=== PATIENT | male | born 1970 | race African-American/Black ===

== ENCOUNTER 2018-08-23 13:04 | Emergency (ER) | payer MEDICARE ==
[~2018-08-23] VITALS: Ht 185.4 cm; Wt 79.4 kg
[2018-08-23] MEDS ORDERED: SODIUM CHLORIDE 0.9% 1000ML 1,000 ML IV STA (13:18)
[2018-08-23] MEDS ORDERED: ONDANSETRON HCL INJ 2MG/ML 2ML 2 MG/ML VIAL IV NR (13:30)
[2018-08-23] MEDS ORDERED: MORPHINE SULFATE INJ 4 MG/ML INJ 1ML IV NR (13:30)
[2018-08-23 13:53] LABS: BASOPHILS % 0.3 % (0.0-1.0); EOSINOPHILS % 0.2 % (0.0-6.0); HEMATOCRIT 48.4 % (38.2-49.6); HEMOGLOBIN 16.3 g/dL (14.0-18.0); LYMPHOCYTES # (AUTO) 1.3 (1.0-3.2); LYMPHOCYTES % 13.2 % (18.0-39.1); MEAN CORPUSCULAR HEMOGLOBIN 29.5 pg (28-32); MEAN CORPUSCULAR HGB CONC 33.7 g/dL (31-35); MEAN CORPUSCULAR VOLUME 87.5 fL (81-99); MONOCYTES # (AUTO) 1.1 (0.2-0.8); NEUTROPHILS % 74.1 % (38.7-80.0); PLATELET COUNT 157 x10e3/uL (140-360); RED BLOOD COUNT 5.53 x10e6/uL (4.3-5.7); RED CELL DISTRIBUTION WIDTH 13.1 % (11.7-14.4)
[2018-08-23 14:04] LABS: ALBUMIN 4.1 g/dL (3.5-5.0); ALBUMIN/GLOBULIN RATIO 1.2 (0.8-2.0); CALCIUM 9.9 mg/dL (8.4-10.2); CREATININE, SERUM 1.42 mg/dL (0.72-1.25)
[2018-08-23 14:10] LABS: CLARITY,URINE HAZY (CLEAR); COLOR,URINE YELLOW (YELLOW); KETONES,URINE NEGATIVE (NEGATIVE); LEUKOCYTE ESTERASE ,URINE NEGATIVE (NEGATIVE); NITRITE,URINE NEGATIVE (NEGATIVE); PROTEIN,URINE DIPSTICK 1+ (NEGATIVE); URINE UROBILINOGEN 0.2 mg/dL (0.2 - 1)
[2018-08-23 14:11] LABS: BILIRUBIN,URINE NEGATIVE (NEGATIVE)
[2018-08-23 14:12] LABS: BACTERIA,URINE MODERATE /HPF; EPITHELIAL CELLS,URINE FEW /LPF; RBC,URINE 0-5 /HPF (0-5); WBC,URINE (MAN) 0-5 /HPF (0-5)
[2018-08-23 14:13] LABS: AMORPHOUS SEDIMENT,URINE FEW (FEW); MUCUS,URINE MODERATE (RARE)
[2018-08-23] MEDS ORDERED: IOPAMIDOL 370 MG/ML 200 ML INFUS..BTL INJ ONE (15:30)
[2018-08-23] MEDS ORDERED: SODIUM CHLORIDE 0.9% 50ML 50 ML ONE (15:30)
--- NOTE | 2018-08-23 17:05 | Diagnostic Imaging Report ---
EXAM: CT Abdomen and Pelvis WITH contrast INDICATION: ^abd pain x 2 days ^[id number] ^[id number] COMPARISON: None. TECHNIQUE: Abdomen and pelvis were scanned utilizing a multidetector helical scanner from the lung base to the pubic symphysis after administration of IV contrast. Coronal and sagittal reformations were obtained. Routine protocol was performed. Scan was performed when during portal venous phase. IV CONTRAST: 100 mL of Isovue-370 ORAL CONTRAST: Water RADIATION DOSE: Total DLP: 304.9 mGy*cm Estimated effective dose: (DLP x 0.015 x size factor) mSv COMPLICATIONS: None FINDINGS: LINES and TUBES: None. LOWER THORAX: Unremarkable HEPATOBILIARY: Multiple hepatic cysts measuring up to 1.5 cm. No biliary ductal dilation. GALLBLADDER: No radio-opaque stones or sludge. No wall thickening. SPLEEN: No splenomegaly. PANCREAS: No focal masses or ductal dilatation. ADRENALS: No adrenal nodules KIDNEYS/URETERS: Kidneys enhance symmetrically. No hydronephrosis. No cystic or solid mass lesions. No stones. GI TRACT: Small hiatal hernia with associated circumferential wall thickening of the distal esophagus and severe distention of the stomach. Mild dilatation of multiple loops of small bowel throughout the abdomen and pelvis without transition point and measuring up to 3.8 cm. The colon is decompressed. The appendix is not visualized. But no inflammatory changes in the right lower quadrant. PELVIC ORGANS/BLADDER: Unremarkable. LYMPH NODES: No lymphadenopathy. VESSELS: Unremarkable. PERITONEUM / RETROPERITONEUM: No free air. Small amount of fluid in the pelvis. BONES: Mild degenerative changes at L5-S1. SOFT TISSUES: Unremarkable. IMPRESSION: Diffuse mild dilatation of the stomach and multiple loops of small bowel without transition point and associated to small amount of free fluid in the pelvis. Findings are nonspecific and may reflect a gastroenteritis or nonspecific inflammation. No wall thickening of the small bowel. Colon is decompressed. Small hiatal hernia with circumferential wall thickening of the distal esophagus. Correlated with clinical exam and recommend GI consultation. Signed by: Dr. Krissy Colón M.D. on 08/23/2018 5:02 PM
== END 2018-08-23 18:14 | disposition home or self-care (01) ==
LOC: ER 13:08
DX: R10.31 Right lower quadrant pain (principal); R10.32 Left lower quadrant pain; R11.2 Nausea with vomiting, unspecified; K59.00 Constipation, unspecified
CPT/HCPCS: 36415; 74177; 80053; 81001; 82150; 83690; 85025; 99284; J2270; J2405; J7030; Q9967

== ENCOUNTER 2021-08-04 15:51 | Inpatient (IN) | payer MEDICARE ==
[~2021-08-04] VITALS: Ht 185.4 cm; Wt 79.4 kg
[2021-08-04] MEDS ORDERED: SODIUM CHLORIDE 0.9% 1000ML 1,000 ML IV ONE (16:15)
[2021-08-04 16:30] LABS: BASOPHILS % 0.2 % (0.0-1.0); HEMOGLOBIN 15.7 g/dL (14.0-18.0); LYMPHOCYTES # (AUTO) 1.3 (1.0-3.2); LYMPHOCYTES % 11.2 % (18.0-39.1); MEAN CORPUSCULAR HEMOGLOBIN 29.6 pg (28-32); MEAN CORPUSCULAR HGB CONC 34.1 g/dL (31-35); MEAN CORPUSCULAR VOLUME 86.8 fL (81-99); MONOCYTES % 8.5 % (4.4-11.3); NEUTROPHILS # (AUTO) 9.2 (2.1-6.9); NEUTROPHILS % 79.8 % (38.7-80.0); PLATELET COUNT 179 x10e3/uL (140-360); RED CELL DISTRIBUTION WIDTH 13.1 % (11.7-14.4)
[2021-08-04] MEDS: Morphine 4mg Syringe 4 MG/ML INJ IV PRN ×3 (16:41→20:49)
[2021-08-04] MEDS: ONDANSETRON HCL INJ 2MG/ML 2ML 2 MG/ML VIAL IV PRN ×2 (16:41→20:49)
[2021-08-04 16:48] LABS: ALBUMIN 4.2 g/dL (3.5-5.0); ALBUMIN/GLOBULIN RATIO 1.2 (0.8-2.0); ANION GAP 14.9 mmol/L (8-16); CALCIUM 9.7 mg/dL (8.4-10.2); CREATININE, SERUM 1.21 mg/dL (0.72-1.25); POTASSIUM 3.9 mmol/L (3.5-5.1)
[2021-08-04] MEDS ORDERED: IOPAMIDOL 370 MG/ML 100 ML INFUS..BTL INJ ONE (17:16)
[2021-08-04] MEDS ORDERED: Morphine 4mg Syringe 4 MG/ML INJ IV PRN (18:30)
[2021-08-04] MEDS ORDERED: ONDANSETRON HCL INJ 2MG/ML 2ML 2 MG/ML VIAL IV PRN (18:30)
[2021-08-04 20:00] VITALS: BP_SYST 131; BP_SYST 132; BP_DIAS 81; BP_DIAS 89
[2021-08-04 21:00] VITALS: BP 132/81
[2021-08-04] MEDS ORDERED: HYDRALAZINE HCL 20 MG/ML VIAL IV PRN (22:00)
[2021-08-04] MEDS ORDERED: ACETAMINOPHEN 325 MG SUPP PR PRN (22:00)
[2021-08-04] MEDS ORDERED: LEVETIRACETAM500 MG (22:08)
[2021-08-04] MEDS ORDERED: OMEPRAZOLE40 MG (22:08)
[2021-08-04] MEDS ORDERED: ONDANSETRON ODT8 MG (22:08)
[2021-08-04] MEDS: SODIUM CHLORIDE 0.9% 1000ML 1,000 ML IV SCH (22:33)
[2021-08-04] MEDS: METRONIDAZOLE 500MG/NS 100ML 100 ML IV SCH (22:33)
[2021-08-05] VITALS (9 sets, daily range): BP systolic 120–149; BP diastolic 62–82
[2021-08-05] MEDS: Morphine 4mg Syringe 4 MG/ML INJ IV PRN ×4 (00:13→20:51)
[2021-08-05] MEDS: ONDANSETRON HCL INJ 2MG/ML 2ML 2 MG/ML VIAL IV PRN ×4 (00:13→20:50)
[2021-08-05] MEDS ORDERED: KETOROLAC TROMETHAMINE 30 MG/ML VIAL IV STA (04:23)
[2021-08-05 05:08] LABS: BASOPHILS % 0.2 % (0.0-1.0); HEMATOCRIT 44.7 % (38.2-49.6); LYMPHOCYTES # (AUTO) 0.7 (1.0-3.2); MEAN CORPUSCULAR HEMOGLOBIN 29.5 pg (28-32); MEAN CORPUSCULAR HGB CONC 33.6 g/dL (31-35); MEAN CORPUSCULAR VOLUME 87.8 fL (81-99); MONOCYTES # (AUTO) 1.7 (0.2-0.8); MONOCYTES % 15.1 % (4.4-11.3); NEUTROPHILS # (AUTO) 8.7 (2.1-6.9); NEUTROPHILS % 78.2 % (38.7-80.0); PLATELET COUNT 150 x10e3/uL (140-360); RED BLOOD COUNT 5.09 x10e6/uL (4.3-5.7)
[2021-08-05] MEDS: SODIUM CHLORIDE 0.9% 1000ML 1,000 ML IV SCH ×3 (05:19→17:50)
[2021-08-05] MEDS: METRONIDAZOLE 500MG/NS 100ML 100 ML IV SCH ×3 (05:19→20:50)
[2021-08-05 05:31] LABS: ANION GAP 12.2 mmol/L (8-16); CREATININE, SERUM 1.21 mg/dL (0.72-1.25); POTASSIUM 4.2 mmol/L (3.5-5.1)
[2021-08-05] MEDS: LEVETIRACETAM 500MG/5ML VIAL 500 MG in SODIUM CHLORIDE 0.9% 100 ML 100 ML IV SCH ×2 (11:46→23:30)
[2021-08-05] MEDS: BISACODYL 10 MG SUPP PR SCH (20:50)
[2021-08-05] MEDS ORDERED: SODIUM CHLORIDE 0.9% 100 ML ONE (23:36)
[2021-08-06] VITALS (8 sets, daily range): BP systolic 130–144; BP diastolic 68–87
[2021-08-06] MEDS: Morphine 4mg Syringe 4 MG/ML INJ IV PRN ×3 (00:21→20:33)
[2021-08-06] MEDS: SODIUM CHLORIDE 0.9% 1000ML 1,000 ML IV SCH ×4 (02:38→19:57)
[2021-08-06] MEDS: METRONIDAZOLE 500MG/NS 100ML 100 ML IV SCH ×3 (05:03→22:45)
[2021-08-06 05:35] LABS: BASOPHILS % 0.2 % (0.0-1.0); HEMATOCRIT 41.7 % (38.2-49.6); LYMPHOCYTES # (AUTO) 0.5 (1.0-3.2); LYMPHOCYTES % 4.1 % (18.0-39.1); MEAN CORPUSCULAR HEMOGLOBIN 29.5 pg (28-32); MEAN CORPUSCULAR HGB CONC 33.6 g/dL (31-35); MEAN CORPUSCULAR VOLUME 87.8 fL (81-99); MONOCYTES # (AUTO) 1.4 (0.2-0.8); MONOCYTES % 11.8 % (4.4-11.3); NEUTROPHILS # (AUTO) 10.1 (2.1-6.9); NEUTROPHILS % 83.2 % (38.7-80.0); PLATELET COUNT 137 x10e3/uL (140-360); RED BLOOD COUNT 4.75 x10e6/uL (4.3-5.7); RED CELL DISTRIBUTION WIDTH 13.2 % (11.7-14.4)
[2021-08-06 05:44] LABS: ANION GAP 9.9 mmol/L (8-16); CALCIUM 8.2 mg/dL (8.4-10.2); CREATININE, SERUM 1.15 mg/dL (0.72-1.25); POTASSIUM 3.9 mmol/L (3.5-5.1)
[2021-08-06] MEDS: BISACODYL 10 MG SUPP PR SCH (08:31)
[2021-08-06 09:04] LABS: BAND NEUTROPHILS % (MANUAL) 6 %; LYMPHOCYTES % (MANUAL) 4 % (19-48); MONOCYTES % (MANUAL) 11 % (3.4-9.0); NEUTROPHILS % (MANUAL) 79 % (40-74); PLATELET ESTIMATE SLIGHTLY DECREASED; PLATELET MORPHOLOGY COMMENT NORMAL; RBC MORPHOLOGY COMMENT NORMAL
[2021-08-06] MEDS: LEVETIRACETAM 500MG/5ML VIAL 500 MG in SODIUM CHLORIDE 0.9% 100 ML 100 ML IV SCH ×2 (12:16→21:46)
[2021-08-06] MEDS: ONDANSETRON HCL INJ 2MG/ML 2ML 2 MG/ML VIAL IV PRN (18:19)
[2021-08-07] VITALS: BP 118/57
[2021-08-07] MEDS: Morphine 4mg Syringe 4 MG/ML INJ IV PRN ×4 (01:08→22:45)
[2021-08-07] MEDS: SODIUM CHLORIDE 0.9% 1000ML 1,000 ML IV SCH ×3 (02:51→15:27)
[2021-08-07 04:19] VITALS: BP 120/75
[2021-08-07] MEDS: KETOROLAC TROMETHAMINE 30 MG/ML VIAL IV PRN ×2 (04:40→16:00)
[2021-08-07] MEDS: METRONIDAZOLE 500MG/NS 100ML 100 ML IV SCH ×3 (05:17→22:45)
[2021-08-07 05:21] LABS: BASOPHILS % 0.2 % (0.0-1.0); HEMATOCRIT 39.7 % (38.2-49.6); HEMOGLOBIN 13.4 g/dL (14.0-18.0); LYMPHOCYTES # (AUTO) 0.6 (1.0-3.2); LYMPHOCYTES % 5.3 % (18.0-39.1); MEAN CORPUSCULAR HEMOGLOBIN 29.6 pg (28-32); MEAN CORPUSCULAR HGB CONC 33.8 g/dL (31-35); MEAN CORPUSCULAR VOLUME 87.8 fL (81-99); MONOCYTES # (AUTO) 0.8 (0.2-0.8); MONOCYTES % 6.9 % (4.4-11.3); NEUTROPHILS # (AUTO) 9.6 (2.1-6.9); NEUTROPHILS % 87.1 % (38.7-80.0); PLATELET COUNT 134 x10e3/uL (140-360); RED BLOOD COUNT 4.52 x10e6/uL (4.3-5.7); RED CELL DISTRIBUTION WIDTH 13.6 % (11.7-14.4)
[2021-08-07 05:43] LABS: ANION GAP 10.9 mmol/L (8-16); CALCIUM 8.3 mg/dL (8.4-10.2); CREATININE, SERUM 1.17 mg/dL (0.72-1.25); POTASSIUM 3.9 mmol/L (3.5-5.1)
[2021-08-07 07:42] LABS: BAND NEUTROPHILS % (MANUAL) 4 %; LYMPHOCYTES % (MANUAL) 6 % (19-48); MONOCYTES % (MANUAL) 3 % (3.4-9.0); NEUTROPHILS % (MANUAL) 87 % (40-74); PLATELET ESTIMATE SLIGHTLY DECREASED
[2021-08-07 07:43] LABS: PLATELET MORPHOLOGY COMMENT FEW LARGE; RBC MORPHOLOGY COMMENT NORMAL
[2021-08-07] MEDS: LEVETIRACETAM 500MG/5ML VIAL 500 MG in SODIUM CHLORIDE 0.9% 100 ML 100 ML IV SCH ×2 (10:30→22:45)
[2021-08-07] MEDS ORDERED: DIATRIZOATE MEGL/DIATRIZOA SOD 30 ML BTL PO ONE (10:32)
[2021-08-07] MEDS ORDERED: IOPAMIDOL 370 MG/ML 100 ML INFUS..BTL INJ ONE (10:32)
[2021-08-07 12:46] VITALS: BP 120/80
[2021-08-07] MEDS: CEFEPIME 2 GM in SODIUM CHLORIDE 0.9% 100 ML IV SCH ×2 (13:30→20:32)
[2021-08-07 15:57] VITALS: BP 135/76
[2021-08-07 20:00] VITALS: BP 132/75
[2021-08-07] MEDS: CENTRAL TPN FORMULA 1 BAG IV SCH (20:45)
[2021-08-07] MEDS: ONDANSETRON HCL INJ 2MG/ML 2ML 2 MG/ML VIAL IV PRN (22:45)
[2021-08-08] VITALS (7 sets, daily range): BP systolic 109–122; BP diastolic 55–71
[2021-08-08] MEDS: KETOROLAC TROMETHAMINE 30 MG/ML VIAL IV PRN ×3 (01:22→16:36)
[2021-08-08] MEDS: CEFEPIME 2 GM in SODIUM CHLORIDE 0.9% 100 ML IV SCH ×3 (04:26→21:00)
[2021-08-08 05:03] LABS: BASOPHILS % 0.2 % (0.0-1.0); EOSINOPHILS # (AUTO) 0.1 (0.0-0.4); EOSINOPHILS % 0.6 % (0.0-6.0); HEMATOCRIT 37.5 % (38.2-49.6); HEMOGLOBIN 12.5 g/dL (14.0-18.0); LYMPHOCYTES # (AUTO) 0.5 (1.0-3.2); LYMPHOCYTES % 5.7 % (18.0-39.1); MEAN CORPUSCULAR HEMOGLOBIN 29.6 pg (28-32); MEAN CORPUSCULAR HGB CONC 33.3 g/dL (31-35); MEAN CORPUSCULAR VOLUME 88.9 fL (81-99); MONOCYTES # (AUTO) 0.6 (0.2-0.8); MONOCYTES % 6.9 % (4.4-11.3); NEUTROPHILS # (AUTO) 7.6 (2.1-6.9); NEUTROPHILS % 86.3 % (38.7-80.0); PLATELET COUNT 133 x10e3/uL (140-360); RED BLOOD COUNT 4.22 x10e6/uL (4.3-5.7); RED CELL DISTRIBUTION WIDTH 13.7 % (11.7-14.4)
[2021-08-08] MEDS: METRONIDAZOLE 500MG/NS 100ML 100 ML IV SCH ×3 (05:10→21:14)
[2021-08-08] MEDS: SODIUM CHLORIDE 0.9% 1000ML 1,000 ML IV SCH (05:10)
[2021-08-08 05:17] LABS: ANION GAP 7.8 mmol/L (8-16); CALCIUM 7.9 mg/dL (8.4-10.2); CREATININE, SERUM 1.03 mg/dL (0.72-1.25); POTASSIUM 3.8 mmol/L (3.5-5.1)
[2021-08-08 08:59] LABS: EOSINOPHILS % (MANUAL) 1 % (0-7); LYMPHOCYTES % (MANUAL) 6 % (19-48); MONOCYTES % (MANUAL) 5 % (3.4-9.0); NEUTROPHILS % (MANUAL) 88 % (40-74)
[2021-08-08 09:00] LABS: PLATELET ESTIMATE SLIGHTLY DECREASED; PLATELET MORPHOLOGY COMMENT NORMAL; RBC MORPHOLOGY COMMENT NORMAL
[2021-08-08] MEDS: LEVETIRACETAM 500MG/5ML VIAL 500 MG in SODIUM CHLORIDE 0.9% 100 ML 100 ML IV SCH ×2 (10:48→22:30)
[2021-08-08] MEDS: Morphine 4mg Syringe 4 MG/ML INJ IV PRN ×3 (12:58→22:36)
[2021-08-08] MEDS: CENTRAL TPN FORMULA 1 BAG IV SCH (20:00)
[2021-08-08] MEDS: BISACODYL 10 MG SUPP PR SCH (21:00)
[2021-08-08] MEDS: ONDANSETRON HCL INJ 2MG/ML 2ML 2 MG/ML VIAL IV PRN (22:36)
[2021-08-09] VITALS (7 sets, daily range): BP systolic 115–160; BP diastolic 65–74
[2021-08-09] MEDS: KETOROLAC TROMETHAMINE 30 MG/ML VIAL IV PRN ×3 (00:44→23:54)
[2021-08-09] MEDS: CEFEPIME 2 GM in SODIUM CHLORIDE 0.9% 100 ML IV SCH ×3 (04:59→20:31)
[2021-08-09] MEDS: METRONIDAZOLE 500MG/NS 100ML 100 ML IV SCH ×3 (06:00→23:24)
[2021-08-09 07:25] LABS: ANION GAP 7.8 mmol/L (8-16); CALCIUM 7.9 mg/dL (8.4-10.2); CREATININE, SERUM 1.04 mg/dL (0.72-1.25); POTASSIUM 3.8 mmol/L (3.5-5.1)
[2021-08-09 07:39] LABS: MAGNESIUM 2.6 MG/DL (1.3-2.1); PHOSPHORUS 2.7 MG/DL (2.3-4.7)
[2021-08-09] MEDS: BISACODYL 10 MG SUPP PR SCH ×2 (09:14→21:55)
[2021-08-09] MEDS: Morphine 4mg Syringe 4 MG/ML INJ IV PRN ×3 (09:19→20:47)
[2021-08-09] MEDS: LEVETIRACETAM 500MG/5ML VIAL 500 MG in SODIUM CHLORIDE 0.9% 100 ML 100 ML IV SCH ×2 (09:38→22:20)
[2021-08-09] MEDS: CENTRAL TPN FORMULA 1 BAG IV SCH (20:31)
[2021-08-09] MEDS: ONDANSETRON HCL INJ 2MG/ML 2ML 2 MG/ML VIAL IV PRN (20:50)
[2021-08-10] VITALS (8 sets, daily range): BP systolic 113–128; BP diastolic 70–79
[2021-08-10] MEDS: Morphine 4mg Syringe 4 MG/ML INJ IV PRN ×3 (04:01→18:24)
[2021-08-10] MEDS: CEFEPIME 2 GM in SODIUM CHLORIDE 0.9% 100 ML IV SCH ×3 (04:01→20:33)
[2021-08-10] MEDS: ONDANSETRON HCL INJ 2MG/ML 2ML 2 MG/ML VIAL IV PRN ×3 (04:10→18:24)
[2021-08-10] MEDS: METRONIDAZOLE 500MG/NS 100ML 100 ML IV SCH ×3 (05:22→22:00)
[2021-08-10 06:56] LABS: ANION GAP 6.9 mmol/L (8-16); CALCIUM 8.1 mg/dL (8.4-10.2); CREATININE, SERUM 1.01 mg/dL (0.72-1.25); POTASSIUM 3.9 mmol/L (3.5-5.1)
[2021-08-10 06:58] LABS: MAGNESIUM 2.2 MG/DL (1.3-2.1); PHOSPHORUS 3.3 MG/DL (2.3-4.7)
[2021-08-10] MEDS: BISACODYL 10 MG SUPP PR SCH (09:19)
[2021-08-10] MEDS: LEVETIRACETAM 500MG/5ML VIAL 500 MG in SODIUM CHLORIDE 0.9% 100 ML 100 ML IV SCH ×2 (11:03→23:00)
[2021-08-10] MEDS: KETOROLAC TROMETHAMINE 30 MG/ML VIAL IV PRN ×2 (14:10→20:34)
[2021-08-10] MEDS: CENTRAL TPN FORMULA 1 BAG IV SCH (20:36)
[2021-08-11] VITALS (7 sets, daily range): BP systolic 129–143; BP diastolic 69–85
[2021-08-11] MEDS: ONDANSETRON HCL INJ 2MG/ML 2ML 2 MG/ML VIAL IV PRN ×3 (00:38→18:30)
[2021-08-11] MEDS: Morphine 4mg Syringe 4 MG/ML INJ IV PRN ×4 (00:38→21:18)
[2021-08-11] MEDS: CEFEPIME 2 GM in SODIUM CHLORIDE 0.9% 100 ML IV SCH ×3 (04:37→20:59)
[2021-08-11] MEDS: METRONIDAZOLE 500MG/NS 100ML 100 ML IV SCH ×3 (05:58→23:00)
[2021-08-11 06:16] LABS: BASOPHILS % 0.5 % (0.0-1.0); EOSINOPHILS # (AUTO) 0.2 (0.0-0.4); EOSINOPHILS % 1.9 % (0.0-6.0); HEMOGLOBIN 12.3 g/dL (14.0-18.0); LYMPHOCYTES % 11.5 % (18.0-39.1); MEAN CORPUSCULAR HEMOGLOBIN 29.1 pg (28-32); MEAN CORPUSCULAR HGB CONC 32.4 g/dL (31-35); MONOCYTES # (AUTO) 1.4 (0.2-0.8); MONOCYTES % 16.1 % (4.4-11.3); NEUTROPHILS # (AUTO) 5.7 (2.1-6.9); NEUTROPHILS % 68.1 % (38.7-80.0); PLATELET COUNT 144 x10e3/uL (140-360); RED BLOOD COUNT 4.22 x10e6/uL (4.3-5.7)
[2021-08-11 06:38] LABS: ALBUMIN 2.4 g/dL (3.5-5.0); ALBUMIN/GLOBULIN RATIO 0.8 (0.8-2.0); ANION GAP 7.9 mmol/L (8-16); CALCIUM 7.9 mg/dL (8.4-10.2); CHOL/HDL RATIO 2.9 (3.9-4.7); CREATININE, SERUM 0.94 mg/dL (0.72-1.25); MAGNESIUM 1.8 MG/DL (1.3-2.1); PHOSPHORUS 3.1 MG/DL (2.3-4.7); POTASSIUM 3.9 mmol/L (3.5-5.1)
[2021-08-11] MEDS ORDERED: SODIUM CHLORIDE 0.9% 250ML 250 ML ONE (08:28)
[2021-08-11] MEDS: LEVETIRACETAM 500MG/5ML VIAL 500 MG in SODIUM CHLORIDE 0.9% 100 ML 100 ML IV SCH ×2 (10:30→22:30)
[2021-08-11] MEDS: KETOROLAC TROMETHAMINE 30 MG/ML VIAL IV PRN (13:15)
[2021-08-11] MEDS ORDERED: CENTRAL TPN FORMULA 1 BAG IV SCH (20:00)
[2021-08-12] VITALS (7 sets, daily range): BP systolic 113–141; BP diastolic 62–79
[2021-08-12] MEDS: Morphine 4mg Syringe 4 MG/ML INJ IV PRN ×4 (05:03→20:18)
[2021-08-12] MEDS: CEFEPIME 2 GM in SODIUM CHLORIDE 0.9% 100 ML IV SCH ×2 (05:03→13:00)
[2021-08-12] MEDS: ONDANSETRON HCL INJ 2MG/ML 2ML 2 MG/ML VIAL IV PRN ×3 (05:03→16:09)
[2021-08-12] MEDS: METRONIDAZOLE 500MG/NS 100ML 100 ML IV SCH ×2 (06:44→13:30)
[2021-08-12] MEDS: LEVETIRACETAM 500MG/5ML VIAL 500 MG in SODIUM CHLORIDE 0.9% 100 ML 100 ML IV SCH ×2 (10:30→21:33)
[2021-08-12] MEDS: CENTRAL TPN FORMULA 1 BAG IV SCH (20:13)
[2021-08-13] VITALS (8 sets, daily range): BP systolic 114–122; BP diastolic 64–71
[2021-08-13] MEDS: Morphine 4mg Syringe 4 MG/ML INJ IV PRN ×7 (00:02→22:15)
[2021-08-13 07:48] LABS: BASOPHILS # (AUTO) 0.1 (0.0-0.1); BASOPHILS % 0.4 % (0.0-1.0); EOSINOPHILS # (AUTO) 0.1 (0.0-0.4); HEMATOCRIT 38.7 % (38.2-49.6); HEMOGLOBIN 12.8 g/dL (14.0-18.0); LYMPHOCYTES # (AUTO) 1.7 (1.0-3.2); LYMPHOCYTES % 11.7 % (18.0-39.1); MEAN CORPUSCULAR HEMOGLOBIN 29.2 pg (28-32); MEAN CORPUSCULAR HGB CONC 33.1 g/dL (31-35); MEAN CORPUSCULAR VOLUME 88.2 fL (81-99); MONOCYTES # (AUTO) 1.7 (0.2-0.8); MONOCYTES % 11.7 % (4.4-11.3); NEUTROPHILS # (AUTO) 10.4 (2.1-6.9); NEUTROPHILS % 73.3 % (38.7-80.0); PLATELET COUNT 170 x10e3/uL (140-360); RED BLOOD COUNT 4.39 x10e6/uL (4.3-5.7); RED CELL DISTRIBUTION WIDTH 13.2 % (11.7-14.4)
[2021-08-13 08:08] LABS: ALBUMIN 2.6 g/dL (3.5-5.0); ALBUMIN/GLOBULIN RATIO 0.8 (0.8-2.0); ANION GAP 10.1 mmol/L (8-16); CALCIUM 7.9 mg/dL (8.4-10.2); CREATININE, SERUM 0.96 mg/dL (0.72-1.25); POTASSIUM 4.1 mmol/L (3.5-5.1)
[2021-08-13] MEDS: LEVETIRACETAM 500MG/5ML VIAL 500 MG in SODIUM CHLORIDE 0.9% 100 ML 100 ML IV SCH ×2 (09:11→22:30)
[2021-08-13] MEDS: ONDANSETRON HCL INJ 2MG/ML 2ML 2 MG/ML VIAL IV PRN (14:53)
[2021-08-13] MEDS: CENTRAL TPN FORMULA 1 BAG IV SCH (20:57)
[2021-08-14] VITALS (9 sets, daily range): BP systolic 0–124; BP diastolic 65–73
[2021-08-14] MEDS: Morphine 4mg Syringe 4 MG/ML INJ IV PRN ×4 (02:10→15:26)
[2021-08-14 06:19] LABS: BASOPHILS # (AUTO) 0.1 (0.0-0.1); BASOPHILS % 0.5 % (0.0-1.0); EOSINOPHILS # (AUTO) 0.1 (0.0-0.4); EOSINOPHILS % 0.7 % (0.0-6.0); HEMOGLOBIN 13.3 g/dL (14.0-18.0); LYMPHOCYTES # (AUTO) 2.3 (1.0-3.2); LYMPHOCYTES % 12.9 % (18.0-39.1); MEAN CORPUSCULAR HGB CONC 33.3 g/dL (31-35); MEAN CORPUSCULAR VOLUME 87.3 fL (81-99); MONOCYTES # (AUTO) 1.9 (0.2-0.8); MONOCYTES % 10.5 % (4.4-11.3); NEUTROPHILS # (AUTO) 12.9 (2.1-6.9); NEUTROPHILS % 73.1 % (38.7-80.0); PLATELET COUNT 177 x10e3/uL (140-360); RED BLOOD COUNT 4.58 x10e6/uL (4.3-5.7); RED CELL DISTRIBUTION WIDTH 13.1 % (11.7-14.4)
[2021-08-14 06:49] LABS: ALBUMIN 2.9 g/dL (3.5-5.0); ALBUMIN/GLOBULIN RATIO 0.8 (0.8-2.0); ANION GAP 11.4 mmol/L (8-16); CALCIUM 8.2 mg/dL (8.4-10.2); POTASSIUM 4.4 mmol/L (3.5-5.1)
[2021-08-14] MEDS: LEVETIRACETAM 500MG/5ML VIAL 500 MG in SODIUM CHLORIDE 0.9% 100 ML 100 ML IV SCH (10:33)
[2021-08-14] MEDS ORDERED: FENTANYL CITRATE/PF 100MCG/2 ML INJ ONE ×2 (12:19→23:05)
[2021-08-14] MEDS ORDERED: MIDAZOLAM HCL 2 MG/2 ML VIAL ONE (12:19)
[2021-08-14] MEDS ORDERED: ONDANSETRON HCL INJ 2MG/ML 2ML 2 MG/ML VIAL ONE ×2 (13:25→23:16)
[2021-08-14] MEDS ORDERED: SUCCINYLCHOLINE CHLORIDE 20 MG/ML 10ML VIAL ONE (13:25)
[2021-08-14] MEDS ORDERED: POVIDONE IODINE 0.05% 0.05 % ML PO ONE (13:25)
[2021-08-14] MEDS ORDERED: PROPOFOL IV EMULSION 10 MG/ML 20 ML VIAL ONE (13:25)
[2021-08-14] MEDS ORDERED: LIDOCAINE HCL 2% LOCAL INJ 5 ML SDV VIAL INJ ONE (13:25)
[2021-08-14] MEDS ORDERED: NEOSTIGMINE 1 MG/ML 10ML VIAL ONE (13:25)
[2021-08-14] MEDS ORDERED: ATROPINE SULFATE 1 MG/ML VIAL ONE (13:25)
[2021-08-14] MEDS ORDERED: KETOROLAC TROMETHAMINE 30 MG/ML VIAL ONE (13:25)
[2021-08-14] MEDS ORDERED: SEVOFLURANE INHAL SOLN 250 ML PEN BTL ONE (13:25)
[2021-08-14] MEDS ORDERED: ROCURONIUM BROMIDE 10 MG/ML 5ML VIAL IV ONE (13:25)
[2021-08-14] MEDS ORDERED: DEXAMETHASONE SOD PHOS INJ 4 MG/ML SDV ONE (13:25)
[2021-08-14] MEDS ORDERED: ONDANSETRON HCL INJ 2MG/ML 2ML 2 MG/ML VIAL IV PRN (22:45)
[2021-08-14] MEDS: SODIUM CHLORIDE 0.9% 250ML IRRIG IR SCH (22:45)
[2021-08-15] VITALS (27 sets, daily range): BP systolic 76–126; BP diastolic 52–112
[2021-08-15] MEDS: SODIUM CHLORIDE 0.9% 1000ML 1,000 ML IV SCH ×3 (00:06→17:12)
[2021-08-15] MEDS: LEVETIRACETAM 500MG/5ML VIAL 500 MG in SODIUM CHLORIDE 0.9% 100 ML 100 ML IV SCH ×3 (00:20→21:48)
[2021-08-15] MEDS: HYDROMORPHONE 1MG/1ML INJ IV PRN ×8 (00:30→23:20)
[2021-08-15] MEDS: SODIUM CHLORIDE 0.9% 250ML IRRIG IR SCH ×6 (04:00→22:55)
[2021-08-15] MEDS: MEROPENEM 1 GM in SODIUM CHLORIDE 0.9% 100 ML IV SCH ×3 (05:31→21:30)
[2021-08-15 06:16] LABS: BASOPHILS # (AUTO) 0.1 (0.0-0.1); BASOPHILS % 0.3 % (0.0-1.0); EOSINOPHILS % 0.1 % (0.0-6.0); HEMATOCRIT 38.6 % (38.2-49.6); LYMPHOCYTES # (AUTO) 1.2 (1.0-3.2); LYMPHOCYTES % 4.5 % (18.0-39.1); MEAN CORPUSCULAR HEMOGLOBIN 29.5 pg (28-32); MEAN CORPUSCULAR HGB CONC 33.7 g/dL (31-35); MEAN CORPUSCULAR VOLUME 87.7 fL (81-99); MONOCYTES # (AUTO) 1.9 (0.2-0.8); MONOCYTES % 7.4 % (4.4-11.3); NEUTROPHILS # (AUTO) 22.3 (2.1-6.9); NEUTROPHILS % 85.9 % (38.7-80.0); PLATELET COUNT 222 x10e3/uL (140-360); RED CELL DISTRIBUTION WIDTH 13.1 % (11.7-14.4)
[2021-08-15 06:39] LABS: ANION GAP 9.7 mmol/L (8-16); CALCIUM 7.3 mg/dL (8.4-10.2); CREATININE, SERUM 1.08 mg/dL (0.72-1.25)
[2021-08-15 06:45] LABS: POTASSIUM 5.7 mmol/L (3.5-5.1)
[2021-08-15 06:58] LABS: ALBUMIN 2.2 g/dL (3.5-5.0); ALBUMIN/GLOBULIN RATIO 0.8 (0.8-2.0)
[2021-08-15 07:01] LABS: MAGNESIUM 1.6 MG/DL (1.3-2.1); PHOSPHORUS 3.2 MG/DL (2.3-4.7)
[2021-08-15 09:45] LABS: BAND NEUTROPHILS % (MANUAL) 7 %; LYMPHOCYTES % (MANUAL) 4 % (19-48); METAMYELOCYTES % (MANUAL) 1 % (0-0); MONOCYTES % (MANUAL) 4 % (3.4-9.0); MYELOCYTES % (MANUAL) 1 % (0-0); NEUTROPHILS % (MANUAL) 83 % (40-74)
[2021-08-15 09:47] LABS: PLATELET ESTIMATE ADEQUATE; PLATELET MORPHOLOGY COMMENT NORMAL; RBC MORPHOLOGY COMMENT NORMAL
[2021-08-15] MEDS ORDERED: DEXTROSE 10% 1,000 ML IV SCH (14:15)
[2021-08-15] MEDS ORDERED: MAGNESIUM SULFATE 2GM/50ML 50 ML IV ONE (14:50)
[2021-08-15] MEDS: ACETAMINOPHEN 1000 MG/100 ML IV PRN (19:30)
[2021-08-15] MEDS: ONDANSETRON HCL INJ 2MG/ML 2ML 2 MG/ML VIAL IV PRN (19:30)
[2021-08-15] MEDS: CENTRAL TPN FORMULA 1 BAG IV SCH ×2 (21:16)
[2021-08-15] MEDS ORDERED: LEVETIRACETAM 500 MG/5 ML VIAL IV ONE (21:44)
[2021-08-15] MEDS ORDERED: SODIUM CHLORIDE 0.9% 100 ML ONE (21:47)
[2021-08-16] VITALS (22 sets, daily range): BP systolic 105–142; BP diastolic 64–85
[2021-08-16] MEDS: ONDANSETRON HCL INJ 2MG/ML 2ML 2 MG/ML VIAL IV PRN (00:46)
[2021-08-16] MEDS: ACETAMINOPHEN 1000 MG/100 ML IV PRN (02:16)
[2021-08-16] MEDS: SODIUM CHLORIDE 0.9% 250ML IRRIG IR SCH ×6 (02:49→23:24)
[2021-08-16] MEDS: SODIUM CHLORIDE 0.9% 1000ML 1,000 ML IV SCH ×2 (05:09→15:46)
[2021-08-16] MEDS: MEROPENEM 1 GM in SODIUM CHLORIDE 0.9% 100 ML IV SCH ×3 (05:25→22:45)
[2021-08-16] MEDS: HYDROMORPHONE 1MG/1ML INJ IV PRN ×6 (06:28→23:11)
[2021-08-16 10:37] LABS: BASOPHILS # (AUTO) 0.1 (0.0-0.1); BASOPHILS % 0.3 % (0.0-1.0); EOSINOPHILS # (AUTO) 0.1 (0.0-0.4); EOSINOPHILS % 0.7 % (0.0-6.0); LYMPHOCYTES # (AUTO) 1.2 (1.0-3.2); MEAN CORPUSCULAR HEMOGLOBIN 29.5 pg (28-32); MEAN CORPUSCULAR HGB CONC 34.1 g/dL (31-35); MEAN CORPUSCULAR VOLUME 86.7 fL (81-99); MONOCYTES # (AUTO) 1.9 (0.2-0.8); MONOCYTES % 10.5 % (4.4-11.3); NEUTROPHILS # (AUTO) 14.2 (2.1-6.9); NEUTROPHILS % 79.9 % (38.7-80.0); PLATELET COUNT 220 x10e3/uL (140-360); RED BLOOD COUNT 3.69 x10e6/uL (4.3-5.7); RED CELL DISTRIBUTION WIDTH 13.1 % (11.7-14.4)
[2021-08-16 10:42] LABS: HEMOGLOBIN 10.9 g/dL (14.0-18.0)
[2021-08-16 10:54] LABS: ALBUMIN/GLOBULIN RATIO 0.6 (0.8-2.0); ANION GAP 9.5 mmol/L (8-16); CALCIUM 7.4 mg/dL (8.4-10.2); CREATININE, SERUM 0.86 mg/dL (0.72-1.25); POTASSIUM 4.5 mmol/L (3.5-5.1)
[2021-08-16] MEDS: LEVETIRACETAM 500MG/5ML VIAL 500 MG in SODIUM CHLORIDE 0.9% 100 ML 100 ML IV SCH ×2 (11:21→23:24)
[2021-08-16] MEDS: CENTRAL TPN FORMULA 1 BAG IV SCH (20:40)
[2021-08-17] VITALS (7 sets, daily range): BP systolic 121–136; BP diastolic 71–76
[2021-08-17] MEDS: HYDROMORPHONE 1MG/1ML INJ IV PRN ×7 (03:15→23:24)
[2021-08-17] MEDS: SODIUM CHLORIDE 0.9% 250ML IRRIG IR SCH ×3 (03:15→10:45)
[2021-08-17] MEDS: MEROPENEM 1 GM in SODIUM CHLORIDE 0.9% 100 ML IV SCH ×3 (05:57→21:51)
[2021-08-17 09:22] LABS: BASOPHILS # (AUTO) 0.1 (0.0-0.1); BASOPHILS % 0.3 % (0.0-1.0); EOSINOPHILS # (AUTO) 0.2 (0.0-0.4); HEMATOCRIT 32.5 % (38.2-49.6); HEMOGLOBIN 11.1 g/dL (14.0-18.0); LYMPHOCYTES # (AUTO) 1.2 (1.0-3.2); LYMPHOCYTES % 8.2 % (18.0-39.1); MEAN CORPUSCULAR HEMOGLOBIN 29.3 pg (28-32); MEAN CORPUSCULAR HGB CONC 34.2 g/dL (31-35); MEAN CORPUSCULAR VOLUME 85.8 fL (81-99); MONOCYTES # (AUTO) 1.7 (0.2-0.8); MONOCYTES % 11.7 % (4.4-11.3); NEUTROPHILS # (AUTO) 11.4 (2.1-6.9); NEUTROPHILS % 77.3 % (38.7-80.0); PLATELET COUNT 234 x10e3/uL (140-360); RED BLOOD COUNT 3.79 x10e6/uL (4.3-5.7); RED CELL DISTRIBUTION WIDTH 13.2 % (11.7-14.4)
[2021-08-17 09:25] LABS: ANION GAP 10.2 mmol/L (8-16); CALCIUM 7.9 mg/dL (8.4-10.2); CREATININE, SERUM 0.79 mg/dL (0.72-1.25); POTASSIUM 4.2 mmol/L (3.5-5.1)
[2021-08-17 09:38] LABS: ALBUMIN/GLOBULIN RATIO 0.6 (0.8-2.0)
[2021-08-17] MEDS: LEVETIRACETAM 500MG/5ML VIAL 500 MG in SODIUM CHLORIDE 0.9% 100 ML 100 ML IV SCH ×2 (10:07→22:30)
[2021-08-17] MEDS: SODIUM CHLORIDE 0.9% 1000ML 1,000 ML IV SCH (11:18)
[2021-08-17] MEDS: ENOXAPARIN SOD INJ 40 MG/0.4 ML SYR SC SCH (16:43)
[2021-08-17] MEDS: CENTRAL TPN FORMULA 1 BAG IV SCH (20:11)
[2021-08-18] VITALS (10 sets, daily range): BP systolic 118–131; BP diastolic 69–79
[2021-08-18] MEDS: HYDROMORPHONE 1MG/1ML INJ IV PRN ×7 (02:38→23:26)
[2021-08-18 04:54] LABS: BASOPHILS # (AUTO) 0.1 (0.0-0.1); BASOPHILS % 0.5 % (0.0-1.0); EOSINOPHILS # (AUTO) 0.2 (0.0-0.4); EOSINOPHILS % 1.5 % (0.0-6.0); HEMOGLOBIN 10.8 g/dL (14.0-18.0); LYMPHOCYTES # (AUTO) 1.4 (1.0-3.2); LYMPHOCYTES % 10.8 % (18.0-39.1); MEAN CORPUSCULAR HEMOGLOBIN 29.7 pg (28-32); MEAN CORPUSCULAR HGB CONC 33.8 g/dL (31-35); MEAN CORPUSCULAR VOLUME 87.9 fL (81-99); MONOCYTES # (AUTO) 1.5 (0.2-0.8); MONOCYTES % 11.1 % (4.4-11.3); NEUTROPHILS # (AUTO) 9.7 (2.1-6.9); NEUTROPHILS % 74.1 % (38.7-80.0); PLATELET COUNT 264 x10e3/uL (140-360); RED BLOOD COUNT 3.64 x10e6/uL (4.3-5.7); RED CELL DISTRIBUTION WIDTH 13.3 % (11.7-14.4)
[2021-08-18 05:19] LABS: ANION GAP 11.1 mmol/L (8-16); CALCIUM 7.9 mg/dL (8.4-10.2); CREATININE, SERUM 0.79 mg/dL (0.72-1.25); POTASSIUM 4.1 mmol/L (3.5-5.1)
[2021-08-18] MEDS: MEROPENEM 1 GM in SODIUM CHLORIDE 0.9% 100 ML IV SCH ×3 (05:58→21:28)
[2021-08-18] MEDS: SODIUM CHLORIDE 0.9% 1000ML 1,000 ML IV SCH (05:58)
[2021-08-18] MEDS: LEVETIRACETAM 500MG/5ML VIAL 500 MG in SODIUM CHLORIDE 0.9% 100 ML 100 ML IV SCH ×2 (10:41→22:37)
[2021-08-18] MEDS: ENOXAPARIN SOD INJ 40 MG/0.4 ML SYR SC SCH (17:17)
[2021-08-18] MEDS: CENTRAL TPN FORMULA 1 BAG IV SCH (20:26)
[2021-08-18] MEDS: BISACODYL 10 MG SUPP PR SCH (20:40)
[2021-08-19] VITALS (9 sets, daily range): BP systolic 107–130; BP diastolic 64–75
[2021-08-19] MEDS: HYDROMORPHONE 1MG/1ML INJ IV PRN ×4 (01:38→23:53)
[2021-08-19] MEDS: SODIUM CHLORIDE 0.9% 1000ML 1,000 ML IV SCH ×2 (04:08→23:53)
[2021-08-19 06:00] LABS: ANION GAP 10.1 mmol/L (8-16); CALCIUM 7.5 mg/dL (8.4-10.2); CREATININE, SERUM 0.75 mg/dL (0.72-1.25); MAGNESIUM 2.1 MG/DL (1.3-2.1); POTASSIUM 4.1 mmol/L (3.5-5.1)
[2021-08-19] MEDS: MEROPENEM 1 GM in SODIUM CHLORIDE 0.9% 100 ML IV SCH ×3 (06:24→22:36)
[2021-08-19] MEDS: BISACODYL 10 MG SUPP PR SCH (08:00)
[2021-08-19] MEDS ORDERED: METOPROLOL TARTRATE 25 MG TAB PO SCH (09:00)
[2021-08-19] MEDS: LEVETIRACETAM 500MG/5ML VIAL 500 MG in SODIUM CHLORIDE 0.9% 100 ML 100 ML IV SCH ×2 (11:04→22:55)
[2021-08-19] MEDS: HYDROCODONE/APAP 7.5MG-325MG 1 EA TAB PO PRN ×3 (11:54→20:39)
[2021-08-19] MEDS: ENOXAPARIN SOD INJ 40 MG/0.4 ML SYR SC SCH (16:35)
[2021-08-19] MEDS: METOPROLOL TARTRATE 25 MG TAB PO SCH (21:04)
[2021-08-19] MEDS: CENTRAL TPN FORMULA 1 BAG IV SCH (21:06)
[2021-08-20] VITALS (8 sets, daily range): BP systolic 95–129; BP diastolic 64–76
[2021-08-20] MEDS: HYDROCODONE/APAP 7.5MG-325MG 1 EA TAB PO PRN ×5 (02:07→23:50)
[2021-08-20] MEDS: HYDROMORPHONE 1MG/1ML INJ IV PRN ×4 (04:33→21:47)
[2021-08-20 05:28] LABS: BASOPHILS # (AUTO) 0.1 (0.0-0.1); BASOPHILS % 0.7 % (0.0-1.0); EOSINOPHILS # (AUTO) 0.2 (0.0-0.4); EOSINOPHILS % 1.5 % (0.0-6.0); HEMATOCRIT 33.1 % (38.2-49.6); LYMPHOCYTES # (AUTO) 1.6 (1.0-3.2); LYMPHOCYTES % 13.6 % (18.0-39.1); MEAN CORPUSCULAR HEMOGLOBIN 29.4 pg (28-32); MEAN CORPUSCULAR HGB CONC 33.2 g/dL (31-35); MEAN CORPUSCULAR VOLUME 88.5 fL (81-99); MONOCYTES # (AUTO) 1.1 (0.2-0.8); MONOCYTES % 9.3 % (4.4-11.3); NEUTROPHILS # (AUTO) 8.8 (2.1-6.9); NEUTROPHILS % 73.5 % (38.7-80.0); PLATELET COUNT 256 x10e3/uL (140-360); RED BLOOD COUNT 3.74 x10e6/uL (4.3-5.7); RED CELL DISTRIBUTION WIDTH 13.4 % (11.7-14.4)
[2021-08-20 05:53] LABS: ANION GAP 11.1 mmol/L (8-16); CALCIUM 7.7 mg/dL (8.4-10.2); CREATININE, SERUM 0.77 mg/dL (0.72-1.25); POTASSIUM 4.1 mmol/L (3.5-5.1)
[2021-08-20] MEDS: MEROPENEM 1 GM in SODIUM CHLORIDE 0.9% 100 ML IV SCH ×3 (06:04→21:38)
[2021-08-20] MEDS: METOPROLOL TARTRATE 25 MG TAB PO SCH ×2 (08:44→21:00)
[2021-08-20] MEDS: LEVETIRACETAM 500MG/5ML VIAL 500 MG in SODIUM CHLORIDE 0.9% 100 ML 100 ML IV SCH ×2 (11:07→22:30)
[2021-08-20] MEDS: ENOXAPARIN SOD INJ 40 MG/0.4 ML SYR SC SCH (16:33)
[2021-08-20] MEDS: SODIUM CHLORIDE 0.9% 1000ML 1,000 ML IV SCH (18:40)
[2021-08-20] MEDS: CENTRAL TPN FORMULA 1 BAG IV SCH (21:01)
[2021-08-21] VITALS (8 sets, daily range): BP systolic 106–134; BP diastolic 57–77
[2021-08-21] MEDS: HYDROMORPHONE 1MG/1ML INJ IV PRN ×5 (02:14→20:21)
[2021-08-21] MEDS: HYDROCODONE/APAP 7.5MG-325MG 1 EA TAB PO PRN ×5 (04:45→22:16)
[2021-08-21] MEDS: MEROPENEM 1 GM in SODIUM CHLORIDE 0.9% 100 ML IV SCH ×3 (05:17→22:14)
[2021-08-21 06:44] LABS: BASOPHILS # (AUTO) 0.1 (0.0-0.1); BASOPHILS % 0.5 % (0.0-1.0); EOSINOPHILS # (AUTO) 0.2 (0.0-0.4); EOSINOPHILS % 1.9 % (0.0-6.0); HEMATOCRIT 31.1 % (38.2-49.6); HEMOGLOBIN 10.2 g/dL (14.0-18.0); LYMPHOCYTES # (AUTO) 1.8 (1.0-3.2); LYMPHOCYTES % 17.1 % (18.0-39.1); MEAN CORPUSCULAR HEMOGLOBIN 29.2 pg (28-32); MEAN CORPUSCULAR HGB CONC 32.8 g/dL (31-35); MEAN CORPUSCULAR VOLUME 89.1 fL (81-99); MONOCYTES # (AUTO) 0.9 (0.2-0.8); MONOCYTES % 8.3 % (4.4-11.3); NEUTROPHILS # (AUTO) 7.5 (2.1-6.9); PLATELET COUNT 263 x10e3/uL (140-360); RED BLOOD COUNT 3.49 x10e6/uL (4.3-5.7); RED CELL DISTRIBUTION WIDTH 13.7 % (11.7-14.4)
[2021-08-21] MEDS: METOPROLOL TARTRATE 25 MG TAB PO SCH ×2 (09:24→20:23)
[2021-08-21] MEDS: LEVETIRACETAM 500 MG TAB PO SCH ×2 (09:24→20:21)
[2021-08-21] MEDS ORDERED: ONDANSETRON HCL 4 MG ORAL DISINTEGRATING TAB PO PRN (17:45)
[2021-08-21] MEDS ORDERED: MAGNESIUM HYDROXIDE 30 ML UDC PO ONE (18:45)
[2021-08-22] VITALS (9 sets, daily range): BP systolic 101–120; BP diastolic 61–70
[2021-08-22] MEDS: HYDROMORPHONE 1MG/1ML INJ IV PRN ×5 (00:53→20:36)
[2021-08-22] MEDS: HYDROCODONE/APAP 7.5MG-325MG 1 EA TAB PO PRN ×2 (03:19→23:16)
[2021-08-22] MEDS: MEROPENEM 1 GM in SODIUM CHLORIDE 0.9% 100 ML IV SCH ×3 (05:07→20:47)
[2021-08-22 05:46] LABS: BASOPHILS # (AUTO) 0.1 (0.0-0.1); BASOPHILS % 0.8 % (0.0-1.0); EOSINOPHILS # (AUTO) 0.2 (0.0-0.4); EOSINOPHILS % 1.6 % (0.0-6.0); HEMATOCRIT 33.2 % (38.2-49.6); HEMOGLOBIN 11.1 g/dL (14.0-18.0); LYMPHOCYTES # (AUTO) 1.8 (1.0-3.2); LYMPHOCYTES % 15.8 % (18.0-39.1); MEAN CORPUSCULAR HEMOGLOBIN 29.1 pg (28-32); MEAN CORPUSCULAR HGB CONC 33.4 g/dL (31-35); MEAN CORPUSCULAR VOLUME 87.1 fL (81-99); MONOCYTES # (AUTO) 0.8 (0.2-0.8); MONOCYTES % 7.1 % (4.4-11.3); NEUTROPHILS # (AUTO) 8.3 (2.1-6.9); NEUTROPHILS % 73.8 % (38.7-80.0); PLATELET COUNT 298 x10e3/uL (140-360); RED BLOOD COUNT 3.81 x10e6/uL (4.3-5.7); RED CELL DISTRIBUTION WIDTH 13.5 % (11.7-14.4)
[2021-08-22 06:15] LABS: ALBUMIN 2.5 g/dL (3.5-5.0); ALBUMIN/GLOBULIN RATIO 0.6 (0.8-2.0); ANION GAP 13.5 mmol/L (8-16); CALCIUM 8.7 mg/dL (8.4-10.2); CREATININE, SERUM 0.86 mg/dL (0.72-1.25); POTASSIUM 4.5 mmol/L (3.5-5.1)
[2021-08-22] MEDS: LEVETIRACETAM 500 MG TAB PO SCH ×2 (09:12→20:34)
[2021-08-22] MEDS: METOPROLOL TARTRATE 25 MG TAB PO SCH ×2 (09:12→20:36)
[2021-08-23 03:49] VITALS: BP 106/69
[2021-08-23] MEDS: HYDROCODONE/APAP 7.5MG-325MG 1 EA TAB PO PRN ×2 (04:20→08:32)
[2021-08-23] MEDS: MEROPENEM 1 GM in SODIUM CHLORIDE 0.9% 100 ML IV SCH (06:13)
[2021-08-23 08:00] VITALS: BP 101/66
[2021-08-23 08:07] VITALS: BP 106/69
[2021-08-23] MEDS: LEVETIRACETAM 500 MG TAB PO SCH (08:32)
[2021-08-23] MEDS: METOPROLOL TARTRATE 25 MG TAB PO SCH (08:32)
[2021-08-23 11:30] VITALS: BP 105/57
== END 2021-08-23 12:30 | disposition home or self-care (01) | DRG 853 ==
LOC: ER 15:54 → ERHOLD 18:27 → MED/SURG 21:15 → ICU 08-14 20:43 → MED/SURG 08-16 22:27
PROVIDERS: ADMIT Internal Medicine; ATTEND Internal Medicine
PROC: 02HV33Z Insertion of Infusion Device into Superior Vena Cava, Percutaneous Approach (ICD-10-PCS; 2021-08-07)
PROC: 0DT80ZZ Resection of Small Intestine, Open Approach (ICD-10-PCS; principal; 2021-08-15)
PROC: 0DN80ZZ Release Small Intestine, Open Approach (ICD-10-PCS; 2021-08-15)
PROC: 0DNW0ZZ Release Peritoneum, Open Approach (ICD-10-PCS; 2021-08-15)
PROC: 0W9G0ZZ Drainage of Peritoneal Cavity, Open Approach (ICD-10-PCS; 2021-08-15)
PROC: 3E1M38Z Irrigation of Peritoneal Cavity using Irrigating Substance, Percutaneous Approach (ICD-10-PCS; 2021-08-15)
DX: A41.9 Sepsis, unspecified organism (principal); K65.1 Peritoneal abscess; K56.50 Intestinal adhesions [bands], unspecified as to partial versus complete obstruction; N17.9 Acute kidney failure, unspecified; K56.7 Ileus, unspecified; G40.909 Epilepsy, unspecified, not intractable, without status epilepticus; K21.9 Gastro-esophageal reflux disease without esophagitis; Z87.828 Personal history of other (healed) physical injury and trauma; E87.8 Other disorders of electrolyte and fluid balance, not elsewhere classified; D64.89 Other specified anemias; E87.5 Hyperkalemia; Z87.820 Personal history of traumatic brain injury; E86.0 Dehydration; Z20.822 Contact with and (suspected) exposure to COVID-19
CPT/HCPCS: 36415; 36569; 71045; 74018; 74019; 74022; 74177; 80048; 80053; 80061; 82948; 83690; 83735; 84100; 84132; 85025; 88307; 93005; 93306; 94799; 96361; 96366; 97139; 99284; C1713; J0330; J0456; J0461; J0692; J0696; J1100; J1170; J1650; J1885; J2001; J2185; J2250; J2270; J2405; J2710; J3010; J3475; J7030; J7050; Q9967; U0002